=== PATIENT | male | born 1950 | race Caucasian/White ===

== ENCOUNTER 2019-09-15 11:05 | Emergency (ER) | payer OTHER, MEDICARE ==
--- NOTE | 2019-09-15 11:53 | EDM.PDOC ---
ED [facility] GENERAL MEDICAL PROBLEM - General Chief Complaint: Chest Pain Stated Complaint: CHEST PAIN Time Seen by Provider: 09/15/19 11:45 Source of Information: Reports: Patient History Limitations: Reports: No Limitations - History of Present Illness INITIAL COMMENTS - FREE TEXT/NARRATIVE: came in from [facility] he lives in [place] , came to [employer] car he just bought states as he was walking out of hotel he felt sudden pain in the left side of his chest wall sharp shooting pain no nausea or vomiting , no dizziness pain resolved before arrival her states he has had episode of same in the past denies current medical problems he is a smoker not on any medication was admitted in hospital in june Onset: Today Onset Date: 09/15/19 Onset Time: 10:15 Duration: Resolved Prior to Arrival (as he walked in to hospital , pain resolved ) Associated Symptoms: Reports: Cough, Diaphoresis Chest Pain Score (Numeric/FACES): 2 - Related Data Allergies Allergy/AdvReac Type Severity Reaction Status Date / Time No Known Allergies Allergy Verified 09/15/19 11:44 Home Meds: Home Meds Aspirin 81 mg PO DAILY #90 tab.chew 09/15/19 [Rx] ED ROS GENERAL - Review of Systems Review Of Systems: Comprehensive ROS is negative, except as noted in HPI. Constitutional: Reports: No Symptoms HEENT: Reports: No Symptoms Respiratory: Reports: Other (anterior chest wall pain , resolved) Cardiovascular: Reports: No Symptoms Endocrine: Reports: No Symptoms GI/Abdominal: Reports: No Symptoms Musculoskeletal: Reports: No Symptoms Skin: Reports: No Symptoms Neurological: Reports: No Symptoms Psychiatric: Reports: No Symptoms Hematologic/Lymphatic: Reports: No Symptoms Immunologic: Reports: No Symptoms ED EXAM, GENERAL - Physical Exam Exam: See Below Exam Limited By: No Limitations General Appearance: Alert, WD/WN, No Apparent Distress Eye Exam: Bilateral Eye: EOMI Ears: Normal External Exam Ear Exam: Bilateral Ear: Auricle Normal Nose: Normal Mucosa Throat/Mouth: Normal Oropharynx Head: Atraumatic, Normocephalic Neck: Supple, Non-Tender Respiratory/Chest: No Respiratory Distress, Lungs Clear, Normal Breath Sounds, Other Cardiovascular: Normal Peripheral Pulses, Regular Rate, Rhythm, No Edema GI/Abdominal: Soft, Non-Tender Back Exam: Normal Inspection, Full Range of Motion Extremities: Normal Inspection Neurological: Oriented, Normal Reflexes Course - Vital Signs Last Recorded V/S: Last Vital Signs Temp 36.3 C 09/15/19 11:44 Pulse 66 09/15/19 12:44 Resp 16 09/15/19 12:44 BP 142/86 H 09/15/19 12:44 Pulse Ox 98 09/15/19 12:44 - Orders/Labs/Meds Orders: Active Orders 24 hr Category Date Time Status EKG Documentation Completion [RC] ASDIRECTED Care 09/15/19 11:47 Active Chest 2V [CR] Stat Exams 09/15/19 11:47 Taken EKG 12 Lead [EK] Routine Ther 09/15/19 11:46 Ordered Labs: Laboratory Tests 09/15/19 09/15/19 Range/Units 12:05 12:05 WBC 7.4 (4.5-12.0) X10-3/uL RBC 4.96 (4.30-5.75) x10(6)uL Hgb 15.5 (13.5-17.8) g/dL Hct 46.2 (30.0-51.3) % MCV 93.2 (80-96) fL MCH 31.2 (27.7-33.6) pg MCHC 33.5 (32.2-35.4) g/dL RDW 12.0 (11.5-15.5) % Plt Count 285 (125-369) X10(3)uL MPV 8.7 (7.4-10.4) fL Neut % (Auto) 63.6 (46-82) % Lymph % (Auto) 21.8 (13-37) % [place] % (Auto) 10.5 (4-12) % Eos % (Auto) 1 (1.0-5.0) % Baso % (Auto) 3 H (0-2) % Neut # (Auto) 4.7 (1.6-8.3) # Lymph # (Auto) 1.6 (0.6-5.0) # [place] # (Auto) 0.8 (0.0-1.3) # Eos # (Auto) 0.1 (0.0-0.8) # Baso # (Auto) 0.2 (0.0-0.2) # Troponin I 4.8 (4.0-60.3) pg/mL TSH, Ultra Sensitive 1.62 (0.36-3.74) IU/mL Departure - Departure Time of Disposition: 13:25 Disposition: Home, Self-Care 01 Condition: Good Clinical Impression: Atypical chest pain Prescriptions: Aspirin 81 mg PO DAILY #90 tab.chew Instructions: Exercise Stress Test, [id number] Referrals: PCP,Not In Area [Primary Care Provider] - Forms: ED Department Discharge Additional Instructions: 1) Start aspirin 81 mg daily till you are seen by your PCP 2) if pain happens again , you need to go to the ER 3) Call with any concerns Sepsis Event Note - Evaluation Sepsis Screening Result: No Definite Risk - Focused Exam Vital Signs: Vital Signs Temp Pulse Resp BP Pulse Ox 09/15/19 12:44 66 16 142/86 H 98 09/15/19 12:10 62 18 133/89 98 09/15/19 11:44 36.3 C 70 18 129/85 100 Date Exam was Performed: 09/15/19 Time Exam was Performed: 13:37 - My Orders Last 24 Hours: My Active Orders 09/15/19 11:46 EKG 12 Lead [EK] Routine 09/15/19 11:47 EKG Documentation Completion [RC] ASDIRECTED Chest 2V [CR] Stat - Assessment/Plan Last 24 Hours: My Active Orders 09/15/19 11:46 EKG 12 Lead [EK] Routine 09/15/19 11:47 EKG Documentation Completion [RC] ASDIRECTED Chest 2V [CR] Stat
--- NOTE | 2019-09-15 15:28 | CR ---
INDICATION: Chest pain. CHEST, 2 VIEWS: PA and lateral views of the chest, 09/15/19 - no comparisons. The heart is normal in size and shape. There is some minimal calcification suggested in the arch of the aorta. Overlying EKG leads are noted. An active infiltrate or effusion was not identified. A mild dextroconvex scoliosis of the upper middle thoracic spine is noted with moderate bridging hyperstotic changes in the mid-thoracic spine. IMPRESSION: No acute process. MTDD
== END 2019-09-15 14:01 | disposition home or self-care (01) ==
LOC: FB.ED 11:05
DX: R07.89 Other chest pain (principal); Z79.82 Long term (current) use of aspirin; Z79.899 Other long term (current) drug therapy; F17.200 Nicotine dependence, unspecified, uncomplicated
CPT/HCPCS: 36415; 71046; 84443; 84484; 85025; 93005; 99283; 99285-25